=== PATIENT | female | born 1940 | race Caucasian/White ===

== ENCOUNTER 2024-12-27 09:45 | Outpatient (RCR) | payer MEDICARE, BC, SELFPAY ==
--- NOTE | 2024-11-20 15:06 | PTOPEVAL1 ---
Assessment and note entered by Luba Herzog, PT Evaluation Information Assessment Status Evaluation Diagnosis right shoulder pain ICD-10 Condition Codes (PT) Pain in right shoulder M25.511,Weakness R53.1 Onset 6-9 months Subjective Information Pt reports was trying to do a side plank 6-9 months ago and felt something tear. Reports only has trouble with laying on her right side, can only lay about 5 or 10 minute and has to keep her arm at her side and unable to put her hand under her head. Reported Pain Level Pain Score 0: Self Report Assessment PT Clinical Summary Pt is a very healthy individual who was performing plank fitness activity when she felt a tear in her right shoulder. Evaluation shows good ROM however she is highly tender to multiple areas in the shoulder complex especially at the anterior humeral aspect in the bicipital groove. Testing suggests sprain/strain etiology and mild impingement leading to chronic inflammatory response. Pt will benefit from physical therapy to address pain, inflammation, and strengthening to improve overall use and function to return patient to prior level of function. Plan of Care Interventions Electrical Stimulation,Hot Pack/Cold Pack,Manual Therapy,Neuro Re-education,Therapeutic Activities, Therapeutic Exercise,Self-Care/Home Management, Ultrasound,Other Other Interventions bracing, taping, IASTM PT Services Indicated Yes Treatment Frequency and 1-2x weekly x 10 visits Duration These treatments will address the objective and functional deficits as defined above. The patient will be advanced safely and appropriately in order for the patient to progress towards his/her prior level of function. Additional exercises will be introduced and as well as a comprehensive home exercise program upon discharge, if needed, ?to ensure carryover of functional gains achieved in the clinic. This treatment plan has been reviewed and agreement upon by the patient.
--- NOTE | 2024-11-20 15:07 | OPREHPOC ---
Outpatient Therapy Plan of Care This is a Multidisciplinary Plan of Care that may contain components documented by all disciplines (PT, OT, and ST.) PT Problem 1 PT Problem #1 Knowledge Deficit PT Goal 1 Goal / Goal Update Pt will be independent in HEP Pt will verbalize understanding of diagnosis and prognosis Target Visit 5 PT Problem 2 PT Problem #2 Pain PT Goal 1 Goal / Goal Update Pt will report greatest pain level at 5/10 or less with pain provoking activities to improve overall function. Target Visit 5 PT Goal 2 Goal / Goal Update Pt will report resolution of pain to return to PLOF Target Visit 10 PT Problem 3 PT Problem #3 Impaired Strength PT Goal 1 Goal / Goal Update Pt will demonstrate strength of 4/5 globally RUE for improved positioning and stability Target Visit 10
--- NOTE | 2024-11-23 16:02 | PCPTNOTE ---
Patient called & cancelled scheduled appointment this date due to weather conditions
--- NOTE | 2025-02-08 14:43 | PTOPDC ---
Assessment and note entered by Luba Herzog, PT Evaluation Information Assessment Status Discharge - Pt Not Present Diagnosis right shoulder pain ICD-10 Condition Codes (PT) Pain in right shoulder M25.511,Weakness R53.1 Onset 6-9 months Subjective Information Pt reports was trying to do a side plank 6-9 months ago and felt something tear. Reports only has trouble with laying on her right side, can only lay about 5 or 10 minute and has to keep her arm at her side and unable to put her hand under her head. Assessment PT Clinical Summary Pt has not returned to therapy in over 30 days. She scheduled and cancelled her reevaluation twice so formal measurements and progress could not be tested. Her last treatment session however she stated she felt 98% improved overall though she still had soreness she consistently rated 3-4/10. As we have been unable to schedule patient, she will be discharged due to nonattendance. Plan of Care PT Services Indicated No
== END 2025-02-12 13:17 | disposition home or self-care (01) ==
LOC: ANHHIPT 09:45
PROVIDERS: PCP Physician Assistant Medical; Visit Provider Physician Assistant Medical
DX: M25.511 Pain in right shoulder (principal); R53.1 Weakness
CPT/HCPCS: 97014; 97035; 97110; 97112; 97140; 97161; G0283

== ENCOUNTER 2025-10-01 10:30 | Outpatient (RCR) | payer MEDICARE, BC, SELFPAY ==
--- NOTE | 2025-09-13 10:21 | PTOPEVAL1 ---
Assessment and note entered by Luba Herzog, PT Evaluation Information Assessment Status Evaluation Diagnosis Pain in left arm Subjective Information Pt reports fell about two months ago landing on her left elbow and left shoulder/flank. States with housework is gets more irritated. Reports got x-rays when her pain did not improve and was negative for fractures. Counter top cleaning makes it worse. Reports also did some overhead lifting with weights to try to make it better and it made it worse. States was tired of taking ibuprofen. States hasn' t picked up her voltaren gel yet States wearing a bra and bending forward hurts in the left breast States wants to get back to exercising. Reports doesn't walk outside because of the weather. Doesn't belong to [facility] but wants to . Has not tried ice on her arm yet. Right hand dominant Reported Pain Level Pain Score 0: Self Report Assessment PT Clinical Summary Pt presents approx two months s/p fall without fracture. She continues to have pain under her left arm in the left rib field area especially with palpation and use of LUE. Evaluation symptoms suggest latissimus strain and possibly subscapularis strain in inflammatory loop, requiring skilled services to reset healing process to complete healing and return to pain- free PLOF. Plan of Care Interventions Electrical Stimulation,Hot Pack/Cold Pack,Manual Therapy,Neuro Re-education,Therapeutic Activities, Therapeutic Exercise,Self-Care/Home Management, Ultrasound,Other Other Interventions Taping PT Services Indicated Yes Treatment Frequency and 2x weekly x 10 visits Duration These treatments will address the objective and functional deficits as defined above. The patient will be advanced safely and appropriately in order for the patient to progress towards his/her prior level of function. Additional exercises will be introduced and as well as a comprehensive home exercise program upon discharge, if needed, ?to ensure carryover of functional gains achieved in the clinic. This treatment plan has been reviewed and agreement upon by the patient.
--- NOTE | 2025-09-13 10:21 | OPREHPOC ---
Outpatient Therapy Plan of Care This is a Multidisciplinary Plan of Care that may contain components documented by all disciplines (PT, OT, and ST.) PT Problem 1 PT Problem #1 Knowledge Deficit PT Goal 1 Goal / Goal Update Pt will be independent in HEP Pt will verbalize understanding of diagnosis and prognosis Target Visit 10 PT Problem 2 PT Problem #2 Pain PT Goal 1 Goal / Goal Update Pt will report greatest pain level at 3/10 or less to improve ADLs and activities Target Visit 10 PT Goal 2 Goal / Goal Update Pt will report resolution of pain to return to PLOF Target Visit 20 PT Problem 3 PT Problem #3 Impaired Strength PT Goal 1 Goal / Goal Update Pt will show ability to perform resistance testing in LUE without pain in all tested planes Target Visit 10 PT Goal 2 Goal / Goal Update Pt will demonstrate ability to perform UE work out activities such as weight lifting in various positions without pain to meet pt activity goals
--- NOTE | 2025-10-14 13:14 | PCPTNOTE ---
Pt cancelled therapy session in [facility], no reason given.
--- NOTE | 2025-10-14 15:29 | PTOPDC ---
Assessment and note entered by Luba Herzog, PT Evaluation Information Assessment Status Discharge - Pt Not Present Diagnosis Pain in left arm Assessment PT Clinical Summary Pt cancelled her reevaluation today. Spoke with patient on the phone and she states she is feeling great and that she no longer needs therapy. Expressed if she needs therapy in the future will return at that time. Thus patient is being discharged per request without formal testing being conducted. Plan of Care PT Services Indicated No
== END 2025-10-14 15:38 | disposition home or self-care (01) ==
LOC: ANHHIPT 10:30
PROVIDERS: PCP Physician Assistant Medical; Visit Provider Physician Assistant Medical
DX: M79.602 Pain in left arm (principal)
CPT/HCPCS: 97110; 97112; 97140; 97530